=== PATIENT | female | born 1995 | race Caucasian/White ===

== ENCOUNTER 2021-09-21 14:06 | Emergency (ER) | payer OTHER, SELFPAY ==
--- NOTE | ~2021-09-21 | CT_ITS ---
EXAMINATION: CT HEAD WITHOUT CONTRAST CLINICAL INFORMATION: History of intracranial hypertension presenting with vision changes. COMPARISON: None. TECHNIQUE: Contiguous axial imaging was performed from the skull base to vertex without intravenous administration of contrast. This CT examination was performed using dose optimization techniques as appropriate, variously including the following: *Automated exposure control *Adjustment of mA and/or kV according to patient size (this includes techniques or standardized protocols for targeted exams where dose is matched to indication/reason for exam; i.e. extremities or head) *Use of iterative reconstruction technique DLP: 677 mGy-cm FINDINGS: There is no evidence of acute intracranial hemorrhage or edematous territorial infarction. There is no abnormal attenuation within the brain parenchyma. Moore-white matter differentiation is preserved. The ventricles are normal in size and configuration. No evidence for obstructive hydrocephalus. No abnormal mass effect or midline shift. No extra-axial fluid collections. No acute soft tissue or osseous abnormalities. The mastoid air cells and paranasal sinuses are clear. CT/CT head/brain wo con IMPRESSION: No evidence of acute intracranial hemorrhage or edematous territorial infarction.
[2021-09-21 15:02] VITALS: BP 117/78; PULSE 89; RESP 18; TEMP 36.8; O2SAT 100; BMI 43.2
[2021-09-21 16:12] LABS: Basophils Absolute Auto 0.1 X10*3/uL (0.0-0.2); Basophils Percent Auto 0.6 % (0-2); Eosinophils Absolute Auto 0.1 X10*3/uL (0.0-0.4); Eosinophils Percent Auto 1.5 % (0-4); Hematocrit 41.9 % (37.0-47.0); Hemoglobin 13.4 g/dl (12.0-16.0); Imm Gran Abs Auto 0.02 X10*3/uL (0.00-0.03); Imm Gran Pct Auto 0.3 % (0.0-0.4); Lymphocytes Absolute Auto 2.4 X10*3/uL (1.2-4.9); Lymphocytes Percent Auto 29.9 % (20-40); MANUAL DIFF FLAG NO; Mean Corpuscular Hemoglobin 26.6 pg (27.0-33.0); Mean Corpuscular Volume 83.1 fL (80.0-98.0); Monocytes Absolute Auto 0.5 X10*3/uL (0.1-1.2); Monocytes Percent Auto 5.9 % (2-11); Neutrophils Absolute Auto 4.9 x10*3/uL (2.0-8.3); Neutrophils Percent Auto 61.8 % (45-73); Platelet Count 316 X10*3/uL (160-400); Red Blood Count 5.04 X10*6/uL (4.20-5.50); Red Cell Distribution Width 14.5 % (11.0-16.0); White Blood Count 7.9 X10*3/uL (4.8-10.8)
[2021-09-21 16:24] LABS: Anion Gap 10 (12-20); Blood Urea Nitrogen 9 mg/dL (9-16); Calcium 9.2 mg/dL (8.4-10.2); Carbon Dioxide 21 mmol/L (22-29); Chloride 110 mmol/L (96-108); Creatinine Clr Calc Pharmacy 129.5; Estimated Glomerular Filt Rate > 60; Glucose Random 93 mg/dL (60-115); Potassium 4.1 mmol/L (3.3-5.1); Sodium 137 mmol/L (135-145)
--- NOTE | 2021-09-21 17:13 | ED_ITS ---
HPI - General Adult General Chief complaint: Headache Stated complaint: IH flare up, loss of vision, headache, neck pain Time Seen by Provider: 09/21/21 14:09 Source: patient Mode of arrival: ambulatory Limitations: no limitations History of Present Illness HPI narrative: Patient is a 26 year old female presenting to the emergency department today with a headache, blurry vision, and requesting a spinal tap. Patient states that she has a history of idiopathic intracranial hypertension for which she follows with a neurologist. She states that she is on diamox 1000mg currently for symptom control. Patient states that her neurologist has her scheduled for an outpatient lumbar puncture in October however, if her symptoms worsen, to present to the ED for a lumbar puncture. Patient denies any lightheadedness, abdominal pain, nausea, vomiting, fever, chills, loss of vision, chest pain, difficulty breathing, shortness of breath, back pain, night sweats, pain with urination, increased urinary frequency, increased urinary urgency, blood in her urine or stool, syncope or a near syncopal episode, recent trauma or falls, bowel incontinence, bladder incontinence, bowel retention, bladder retention, or any other complaints at this time. Onset (ago): day(s) Related Data Allergies Allergy/AdvReac Type Severity Reaction Status Date / Time No Known Allergies Allergy Verified 09/21/21 15:02 Review of Systems Constitutional: Constitutional: Reports no additional constitutional complaints, Denies chills, Denies fever(s) and Denies night sweats Eyes: Eyes: Reports no additional eye complaints, Reports blurry vision, Reports change in vision, Denies diplopia, Denies eye discharge, Denies loss of vision and Denies eye pain ENT: Denies dizziness Cardiovascular: Cardiovascular: Reports no additional cardiovascular complaints, Denies chest pain, Denies lightheadedness, Denies Loss of Consciousness and Denies dyspnea Respiratory: Respiratory: Reports no additional respiratory complaints and Denies dyspnea Gastrointestinal: Gastrointestinal: Reports no additional gastrointestinal complaints, Denies abdominal pain, Denies melena, Denies hematochezia, Denies change in bowel habits and Denies change in stool character Genitourinary: Genitourinary: Denies hematuria, Denies urinary frequency, Denies dysuria, Denies urinary incontinence, Denies urinary hesitancy and Denies urinary urgency Musculoskeletal: Musculoskeletal: Reports no additional musculoskeletal complaints, Denies numbness and Denies tingling Neurologic: Denies dizziness, Denies loss of vision, Denies numbness and Denies tingling Psychiatric: Psychiatric: Reports no additional psychiatric complaints Endocrine: Endocrine: Reports no additional endocrine complaints Hematologic/Lymphatic: Hematologic/Lymphatic: Reports no additional hematologic/lymphatic complaints Allergic/Immunologic: Allergic/Immunologic: Reports no additional allergi c/immunologic complaints [facility] Past Medical History Attestation statement: The following information was validated with the patient. Source: old records reviewed Medical History Idiopathic intracranial hypertension Social History Social History Alcohol intake: never Patient Tobacco Use Status: Never used Tobacco Use of substances other than those prescribed or required for medical reasons: Yes Substance Use Type: Marijuana Substance Use Type Other:: Medical marijuana, vape/edibles for chronic pain Substance Use Frequency: Daily Advance Directives: No Advance Directives Information Provided: No Patient : No Physical Exam ED Vital Signs: Vital Signs - 24 hr 09/21/21 15:02 09/21/21 18:37 Temperature 98.2 F 98.1 F Pulse Rate 89 107 H Respiratory Rate 18 18 Blood Pressure 117/78 126/68 Pulse Oximetry 100 100 BMI result Body Mass Index 43.2 Const General: cooperative, no acute distress, alert and awake Nutritional Appearance: well nourished Orientation/consciousness: patient oriented x3 Limitations: no limitations HENRI Head: Yes normal to inspection and Yes atraumatic Ears: hearing grossly normal bilaterally and external ears normal General nose exam: Normal external nose present, no nasal discharge noted and no epistaxis Face and sinus: Yes normal facial exam, No abrasion and No laceration Mouth: Normal oral and palatal mucosa present, no drooling and no muffled voice Eyes General: appearance normal, both eyes and all related structures Periorbital: periorbital findings normal Eyelids: Yes eyelids normal Conjunctivae: conjunctivae normal Pupils: Equal, round and reactive pupils present EOM: EOMs intact bilaterally Neck Neck: Yes normal visual inspection, Yes full ROM and Yes no lymphadenopathy Chest Chest palpation & inspection: normal inspection of the chest Resp Effort & Inspection: normal respiratory effort and able to speak in complete sentences GI Inspection: Yes normal to inspection Neuro General: patient oriented x3 and moves all extremities Cranial nerves: Yes Equal, round and reactive pupils present Cognition (Neuro): normal cognition Motor exam (neuro): 5/5 motor strength present throughout Sensory Exam: Normal double simultaneous stimulation for sensation Coordination: [id number] test normal Extrem General: Yes normal to inspection, Yes full ROM and Yes capillary refill normal Psych Appearance: grossly normal Mental Status: mental status grossly normal Affect: normal affect Attitude: cooperative Thought process: Normal thought process present Thought content: Normal thought content present Insight: Good insight present (Psych) Medical Decision Making MDM Narrative Medical decision making narrative: Patient is a 26 year old female presenting to the emergency department today with blurry vision, headache, and requesting a spinal tap. Patient's physical exam was unremarkable, including a normal visual acuity exam. Patient's blood work was unremarkable. Patient's head CT showed no acute process and no evidence of excess spinal fluid. I explained my physical exam findings as well as all test results to the patient. I answered all questions asked by the patient. I explained to the patient that at her current state, she does not meet criteria to have a lumbar puncture performed in the emergency department. I stressed the importance of the patient taking her medication as prescribed. I stressed the importance of the patient following up with her primary care provider and her neurologist. I stressed the importance of the patient returning to the emergency department immediately if her symptoms were to worsen or if she were to develop any dizziness, shortness of breath, difficulty breathing, chest pain, blurry vision, loss of vision, nausea, vomiting, abdominal pain, fever, chills, back pain, or any other complaints. Patient verbalized agreement and understanding with this treatment plan and discharge. Differential Diagnosis Differential Diagnosis: idiopathic intracranial hypertension pain, headache Medical Records Medical records reviewed: Yes I reviewed the patient's medical records. Lab Data Lab results reviewed: Yes I reviewed the patient's lab results. Result diagrams: 09/21/21 16:07 09/21/21 16:07 Labs: Lab Results 09/21/21 09/21/21 Range/Units 16:07 16:07 WBC 7.9 (4.8-10.8) X10*3/uL RBC 5.04 (4.20-5.50) X10*6/uL Hgb 13.4 (12.0-16.0) g/dl Hct 41.9 (37.0-47.0) % MCV 83.1 (80.0-98.0) fL MCH 26.6 L (27.0-33.0) pg MCHC 32.0 (31.0-35.0) g/dl RDW 14.5 (11.0-16.0) % Plt Count 316 (160-400) X10*3/uL MPV 9.0 L (9.4-12.3) fL Immature Gran % (Auto) 0.3 (0.0-0.4) % Neut % (Auto) 61.8 (45-73) % Lymph % (Auto) 29.9 (20-40) % [place] % (Auto) 5.9 (2-11) % Eos % (Auto) 1.5 (0-4) % Baso % (Auto) 0.6 (0-2) % Lymph # (Auto) 2.4 (1.2-4.9) X10*3/uL [place] # (Auto) 0.5 (0.1-1.2) X10*3/uL Eos # (Auto) 0.1 (0.0-0.4) X10*3/uL Baso # (Auto) 0.1 (0.0-0.2) X10*3/uL Abs Immat Gran (auto) 0.02 (0.00-0.03) X10*3/uL Absolute Neuts (auto) 4.9 (2.0-8.3) x10*3/uL Absolute Nucleated RBC 0.000 (0.0-0.012) X10*3/uL Nucleated RBC % (auto) 0.0 (0.0-0.2) /100WBC Sodium 137 (135-145) mmol/L Potassium 4.1 (3.3-5.1) mmol/L Chloride 110 H (96-108) mmol/L Carbon Dioxide 21 L (22-29) mmol/L Anion Gap 10 L (12-20) BUN 9 (9-16) mg/dL Creatinine 0.86 (0.5-1.4) mg/dL Estim Creat Clear Calc 129.5 Estimated GFR > 60 Random Glucose 93 (60-115) mg/dL Calcium 9.2 (8.4-10.2) mg/dL Imaging Data CT scan - head: Attestation: I personally reviewed and interpreted this imaging study as follows: Radiologist's impression: EXAMINATION: CT HEAD WITHOUT CONTRAST CLINICAL INFORMATION: History of intracranial hypertension presenting with vision changes.? COMPARISON: None. TECHNIQUE: Contiguous axial imaging was performed from the skull base to vertex without intravenous administration of contrast. This CT examination was performed using dose optimization techniques as appropriate, variously including the following: *Automated exposure control *Adjustment of mA and/or kV according to patient size (this includes techniques or standardized protocols for targeted exams where dose is matched to indication/reason for exam; i.e. extremities or head) *Use of iterative reconstruction technique DLP: 677 mGy-cm FINDINGS: There is no evidence of acute intracranial hemorrhage or edematous territorial infarction. There is no abnormal attenuation within the brain parenchyma. Moore-white matter differentiation is preserved. The ventricles are normal in size and configuration. No evidence for obstructive hydrocephalus. No abnormal mass effect or midline shift. No extra-axial fluid collections. No acute soft tissue or osseous abnormalities. The mastoid air cells and paranasal sinuses are clear. CT/CT head/brain wo con IMPRESSION: No evidence of acute intracranial hemorrhage or edematous territorial infarction. Dictated By: Esperanza Aguirre Signed By: Electronically signed by Esperanza? Carla 09/21/[id number] Discharge Plan Discharge Clinical Impression: Idiopathic intracranial hypertension Patient Disposition: Home, Self-Care Instructions: Idiopathic Intracranial Hypertension (ED) Additional Instructions: Follow up with your primary care provider. Return to the emergency department immediately if your symptoms worsen or if you develop any dizziness, shortness of breath, difficulty breathing, chest pain, blurry vision, loss of vision, nausea, vomiting, abdominal pain, fever, chills, back pain, or any other complaints. Referrals: Do Marquez [employer] [Primary Care Provider] - 2 days Print Language: Japanese
[2021-09-21 18:37] VITALS: BP 126/68; PULSE 107; RESP 18; TEMP 36.7; O2SAT 100
== END 2021-09-21 19:54 | disposition home or self-care (01) ==
PROVIDERS: Emergency Provider Internal Medicine; PCP Nurse Practitioner
DX: G93.2 Benign intracranial hypertension (principal); F12.90 Cannabis use, unspecified, uncomplicated; R51.9 Headache, unspecified
CPT/HCPCS: 36415; 70450; 80048; 85025; 99284

== ENCOUNTER 2022-08-13 15:21 | Emergency (ER) | payer OTHER, SELFPAY ==
--- NOTE | ~2022-08-13 | XR_ITS ---
EXAMINATION: XR CHEST CLINICAL INFORMATION: Pain COMPARISON: None TECHNIQUE: Frontal view of the chest was obtained. FINDINGS: No acute finding. Lung alejandra are felt to be grossly clear. The cardiac silhouette within normal limits for AP film. There is no effusion. Hilar regions do not appear pathologically enlarged. XR/XR chest 1V IMPRESSION: No acute finding.
[2022-08-13 15:45] VITALS: BP 138/82; PULSE 108; RESP 18; TEMP 36.7; O2SAT 100; BMI 43.2
--- NOTE | 2022-08-13 15:46 | ECG_ITS ---
Test Reason : CHEST PAIN Blood Pressure : / mmHG Vent. Rate : 107 BPM Atrial Rate : 108 BPM P-R Int : 176 ms QRS Dur : 090 ms QT Int : 324 ms P-R-T Axes : 043 004 053 degrees QTc Int : 432 ms Sinus tachycardia Nonspecific T wave abnormality Abnormal ECG No previous ECGs available Referred By: Kevin Cabrera Electronically Signed By:SENIA LOUIE MD
--- NOTE | 2022-08-13 15:47 | ED.GENADULT ---
HPI - General Adult General Chief complaint: Chest Pain <CHARMAINE Patrick - Last Filed: 08/13/22 18:41> Stated complaint: sent from urgent care re: ekg/bloodwork <CHARMAINE Patrick - Last Filed: 08/13/22 18:41> Time Seen by Provider: 08/13/22 16:09 <CHARMAINE Patrick - Last Filed: 08/13/22 18:41> Source: patient <Hai Earl MD - Last Filed: 08/13/22 21:34> Mode of arrival: ambulatory <Hai Earl MD - Last Filed: 08/13/22 21:34> Limitations: no limitations <Hai Earl MD - Last Filed: 08/13/22 21:34> History of Present Illness HPI narrative: Patient history of idiopathic intracranial hypertension anxiety on disability is here for chest pain and shortness of breath for over a month correlation with exertion pain is dull pain lasting for few minutes nonspecific shortness of breath saturating 100% at room air no cough no fever no chills patient was seen at urgent care sent here for further evaluation patient denied any leg swelling or leg pain not on control pills no significant family history of coronary artery disease patient is nonsmoker no substance abuse <Hai Earl MD - Last Filed: 08/13/22 21:34> Related Data Allergies/adverse reactions: Allergies Allergy/AdvReac Type Severity Reaction Status Date / Time No Known Allergies Allergy Verified 08/13/22 15:45 <CHARMAINE Patrick - Last Filed: 08/13/22 18:41> Review of Systems Review of Systems: Yes all other systems are reviewed and are negative <Hai Earl MD - Last Filed: 08/13/22 21:34> PMFSH Past Medical History Medical History: Medical History Idiopathic intracranial hypertension <CHARMAINE Patrick - Last Filed: 08/13/22 18:41> Social History Social History: Social History Alcohol intake: never Patient Tobacco Use Status: Never used Tobacco Substance Use Type: Marijuana Advance Directives: No Advance Directives Information Provided: Yes <CHARMAINE Patrick - Last Filed: 08/13/22 18:41> Physical Exam ED Vital Signs: Vital Signs - 24 hr 08/13/22 15:45 Temperature 98.0 F Pulse Rate 108 H Respiratory Rate 18 Blood Pressure 138/82 Pulse Oximetry 100 Oxygen Delivery Method Room Air BMI result Body Mass Index 43.2 <CHARMAINE Patrick - Last Filed: 08/13/22 18:41> Vital Signs - 24 hr 08/13/22 15:45 Temperature 98.0 F Pulse Rate 108 H Respiratory Rate 18 Blood Pressure 138/82 Pulse Oximetry 100 Oxygen Delivery Method Room Air BMI result Body Mass Index 43.2 <Hai Earl MD - Last Filed: 08/13/22 21:34> Appearance: Alert. Oriented X3. No acute distress. Anxious Eyes: No pallor or icterus ENT: Pharynx normal. Oral Mucosa moist Neck: Normal inspection. Neck supple. CVS: Normal heart rate and rhythm. Pulses normal. Respiratory: No respiratory distress. Equal air entry bilateral, no wheezing/rales/rhonchi Abdomen: Soft and nontender. Bowel sounds are present, no mass palpable, no CVA tenderness Skin: Skin warm and dry. Normal skin color. Normal skin turgor. Extremities: No lower extremity edema. No calf tenderness Neuro: Oriented X 3. No motor deficit. No sensory deficit.No cerebellar signs , cranial nerves II-XII intact <Hai Earl MD - Last Filed: 08/13/22 21:34> Course Course Course Narrative: RME: 27 yold female presents to thE ED for chest pain and SOB for one month. labs, chest xray, and EKG ordered. Patient well appearing <CHARMAINE Patrick - Last Filed: 08/13/22 18:41> Medical Decision Making Medical Decision Making MDM Narrative: Patient's anxiety with atypical chest pain for over a month with normal EKG and high sensitive troponin clinically musculoskeletal pain discharge patient home advised to follow with PCP <Hai Earl MD - Last Filed: 08/13/22 21:34> Lab Data [facility] Lab Attestation statement: I reviewed the patient's lab results. <Hai Earl MD - Last Filed: 08/13/22 21:34> Result Diagrams: 08/13/22 17:40 <CHARMAINE Patrick - Last Filed: 08/13/22 18:41> Labs: Lab Results 08/13/22 08/13/22 08/13/22 Range/Units 17:17 17:17 17:40 Sodium 141 (135-145) mmol/L Potassium 4.8 (3.3-5.1) mmol/L Chloride 113 H (96-108) mmol/L Carbon Dioxide 16 L (22-29) mmol/L Anion Gap 17 (12-20) BUN 8 L (9-16) mg/dL Creatinine 0.80 (0.5-1.4) mg/dL Estim Creat Clear Calc 138.0 Estimated GFR > 60 Random Glucose 104 (60-115) mg/dL Calcium 9.4 (8.4-10.2) mg/dL Total Bilirubin 0.2 (0.0-1.0) mg/dL AST 30 (5-31) U/L ALT 34 H (0-31) U/L Alkaline Phosphatase 95 (39-117) U/L Troponin I High Sens < 3.5 (<3.5-17.0) ng/L B-Natriuretic Peptide 10 (<100) pg/mL Total Protein 7.5 (6.5-8.0) g/dL Albumin 4.1 (3.5-5.0) g/dL <CHARMAINE Patrick - Last Filed: 08/13/22 18:41> Lab Results 08/13/22 08/13/22 08/13/22 Range/Units 17:17 17:17 17:40 Sodium 141 (135-145) mmol/L Potassium 4.8 (3.3-5.1) mmol/L Chloride 113 H (96-108) mmol/L Carbon Dioxide 16 L (22-29) mmol/L Anion Gap 17 (12-20) BUN 8 L (9-16) mg/dL Creatinine 0.80 (0.5-1.4) mg/dL Estim Creat Clear Calc 138.0 Estimated GFR > 60 Random Glucose 104 (60-115) mg/dL Calcium 9.4 (8.4-10.2) mg/dL Total Bilirubin 0.2 (0.0-1.0) mg/dL AST 30 (5-31) U/L ALT 34 H (0-31) U/L Alkaline Phosphatase 95 (39-117) U/L Troponin I High Sens < 3.5 (<3.5-17.0) ng/L B-Natriuretic Peptide 10 (<100) pg/mL Total Protein 7.5 (6.5-8.0) g/dL Albumin 4.1 (3.5-5.0) g/dL <Hai Earl MD - Last Filed: 08/13/22 21:34> Independent Interpretation I performed an independent interpretation of an: EKG <Hai Earl MD - Last Filed: 08/13/22 21:34> Interpretation: Sinus tachycardia heart rate 107 beats per minute no acute ST wave changes no acute ischemia <Hai Earl MD - Last Filed: 08/13/22 21:34> Scores Heart Score History: -0- slightly suspicious <Hai Earl MD - Last Filed: 08/13/22 21:34> ECG: -0- normal <Hai Earl MD - Last Filed: 08/13/22 21:34> Age: -0- < or = 45 <Hai Earl MD - Last Filed: 08/13/22 21:34> Risk factory: -0- no risk factors known <Hai Earl MD - Last Filed: 08/13/22 21:34> Troponin: -0- < or = normal limit <Hai Earl MD - Last Filed: 08/13/22 21:34> Score: 0 <Hai Earl MD - Last Filed: 08/13/22 21:34> Risk: 1.7% <Hai Earl MD - Last Filed: 08/13/22 21:34> Discharge Plan Discharge Clinical Impression: Atypical chest pain <CHARMAINE Patrick - Last Filed: 08/13/22 18:41> Patient Disposition: Home, Self-Care <CHARMAINE Patrick - Last Filed: 08/13/22 18:41> Instructions: Noncardiac Chest Pain (ED) <CHARMAINE Patrick - Last Filed: 08/13/22 18:41> Additional Instructions: Your symptoms are not from the heart there is no signs of damage to the heart Follow-up with your PCP for further evaluation <CHARMAINE Patrick - Last Filed: 08/13/22 18:41> Interventions: ED Discharge Assessment Last Done: 08/13/22 18:08 <CHARMAINE Patrick - Last Filed: 08/13/22 18:41> Discharge Date/Time: 08/13/22 18:09 <CHARMAINE Patrick - Last Filed: 08/13/22 18:41>
--- NOTE | 2022-08-13 16:16 | PC.NURSE ---
pt reports chest pain x 1 month, heavy feeling on chest. pt appears well, no major apparent distress at this time, awaiting blood work
--- NOTE | 2022-08-13 17:08 | PC.NURSE ---
pt difficult stick, refusing complete blood draw, aware, pt willing to do finger stick for blood
[2022-08-13 17:45] LABS: B Type Natriuretic Peptide 10 pg/mL (<100)
[2022-08-13 18:00] LABS: Troponin-I High Sensitivity < 3.5 ng/L (<3.5-17.0)
[2022-08-13 18:04] LABS: Alanine Aminotransferase 34 U/L (0-31); Albumin Level 4.1 g/dL (3.5-5.0); Alkaline Phosphatase 95 U/L (39-117); Anion Gap 17 (12-20); Aspartate Amino Transferase 30 U/L (5-31); Bilirubin Total 0.2 mg/dL (0.0-1.0); Blood Urea Nitrogen 8 mg/dL (9-16); Calcium 9.4 mg/dL (8.4-10.2); Carbon Dioxide 16 mmol/L (22-29); Chloride 113 mmol/L (96-108); Estimated Glomerular Filt Rate > 60; Glucose Random 104 mg/dL (60-115); Potassium 4.8 mmol/L (3.3-5.1); Sodium 141 mmol/L (135-145); Total Protein 7.5 g/dL (6.5-8.0)
== END 2022-08-13 18:09 | disposition home or self-care (01) ==
PROVIDERS: Physician Assistant; Emergency Provider Internal Medicine
DX: R07.89 Other chest pain (principal); R06.02 Shortness of breath; Z79.899 Other long term (current) drug therapy
CPT/HCPCS: 36415; 71045; 80053; 83880; 84484; 93005; 99284

== ENCOUNTER → 2023-03-19 09:51 | Outpatient (BNVA) | payer OTHER, SELFPAY | PROVIDERS: Visit Provider Internal Medicine ==